=== PATIENT | female | born 1950 | race Caucasian/White ===

== ENCOUNTER 2020-09-28 10:23 | Inpatient (IN) | payer MEDICARE ==
[2020-09-28] VITALS (24 sets, daily range): BP systolic 80–163; BP diastolic 38–117
[~2020-09-28] VITALS: Ht 142.2 cm; Wt 88.6 kg
[2020-09-28] MEDS ORDERED: morphine 4 MG/ML inj SYRINge IV ONE (10:40)
[2020-09-28] MEDS ORDERED: normal saline 1000ML IV soln IVB ONE (10:40)
[2020-09-28] MEDS ORDERED: ondansetron/PF 4mg/2ml inj IV ONE (10:40)
[2020-09-28 11:40] LABS: BASOPHILS % (AUTO) 0 % (0-1); EOSINOPHILS % (AUTO) 0 % (0-6); HEMATOCRIT 42.5 % (35.0-45.0); HEMOGLOBIN 14.2 g/dl (12.0-16.0); LYMPHOCYTES # (AUTO) 0.2 X10'3 (1.1-4.8); LYMPHOCYTES % (AUTO) 1.8 % (21-51); MEAN CORPUSCULAR HEMOGLOBIN 29.7 PG (27.0-31.0); MEAN CORPUSCULAR HGB CONC 33.5 g/dL (33.0-36.5); MEAN CORPUSCULAR VOLUME 88.7 FL (78-98); MEAN PLATELET VOLUME 9.1 FL (7.4-10.4); MONOCYTES # (AUTO) 0.2 X10'3 (0-0.9); MONOCYTES % (AUTO) 1.8 % (2-12); NEUTROPHILS # (AUTO) 9.5 X10'3 (1.8-7.7); NEUTROPHILS % (AUTO) 96.4 % (42-75); PLATELET COUNT 174 X10'3 (140-440); RED BLOOD COUNT 4.79 X10'6 (4.20-5.60); RED CELL DISTRIBUTION WIDTH 14.7 % (11.5-14.5); WHITE BLOOD COUNT 9.9 X10'3 (4.5-11.0)
[2020-09-28 11:58] LABS: ALANINE AMINOTRANSFERASE 174 U/L (12-78); ALBUMIN 3.2 G/DL (3.4-5.0); ALBUMIN/GLOBULIN RATIO 0.8 (1.1-1.5); ALKALINE PHOSPHATASE 185 IU/L (46-116); ANION GAP 12 (8-16); ASPARTATE AMINO TRANSFERASE 126 U/L (10-37); BILIRUBIN,TOTAL 2.3 MG/DL (0.1-1.0); BLOOD UREA NITROGEN 22 MG/DL (7-18); BUN/CREATININE RATIO 21.8 (6.6-38.0); CALCIUM 9.2 MG/DL (8.5-10.1); CHLORIDE 97 MMOL/L (99-107); CREATININE 1.01 MG/DL (0.40-0.90); GLUCOSE 133 MG/DL (70-104); POTASSIUM 3.7 MMOL/L (3.5-5.1); SODIUM 130 MMOL/L (135-145); TOTAL CARBON DIOXIDE 21.5 MMOL/L (24-32); TOTAL PROTEIN 7.1 G/DL (6.4-8.2); eGFR 54 ML/MIN
[2020-09-28 12:16] LABS: CLARITY,URINE CLOUDY (Clear); COLOR,URINE AMBER (Yellow); GLUCOSE, URINE 100 mg/dl (Neg); KETONES,URINE TRACE mg/dl (Neg); LEUKOCYTE ESTERASE ,URINE MODERATE (Neg); NITRITES, URINE NEGATIVE (Neg); OCCULT BLOOD,URINE MODERATE (Neg); PROTEIN,URINE 30 mg/dl (Neg); UROBILINOGEN,URINE >=8.0 E.U/dL (0.2-1.0)
[2020-09-28 12:25] LABS: UA COLLECTION TYPE CLN CATCH MIDSTREAM
--- NOTE | 2020-09-28 12:25 | NUR ---
to ct via wc
--- NOTE | 2020-09-28 12:27 | NUR ---
urine rejected for culture
[2020-09-28 12:29] LABS: BACTERIA,URINE FEW /HPF (Neg); MUCUS STRANDS FEW /LPF (Neg); RBC,URINE 0-2 /HPF (0-2); SQUAMOUS EPITHELIAL CELL,UR MANY /LPF (FEW); WBC,URINE 20-30 /HPF (0-4)
[2020-09-28 12:30] LABS: RENAL CELLS, URINE FEW /HPF; TRANSITIONAL EPI CELLS,URINE FEW /HPF
[2020-09-28] MEDS ORDERED: piperacillin/tazo 3.375gm/50ml 50 ML IV ONE (13:05)
[2020-09-28] MEDS ORDERED: ondansetron/PF 4mg/2ml inj IV PRN ×2 (13:40→16:25)
[2020-09-28] MEDS ORDERED: morphine 2 MG/ML inj. syringe IV PRN ×2 (13:40→16:25)
[2020-09-28] MEDS ORDERED: HYDROmorphone inj. 0.5 MG/0.5 ML DISP.SYRIN IV PRN (13:40)
[2020-09-28] MEDS ORDERED: mag hydrox/Alum hydrox/simeth 30ml oral suspension PO PRN (13:40)
[2020-09-28] MEDS ORDERED: magnesium hydroxide 30ml (MOM) UD suspension PO PRN (13:40)
[2020-09-28] MEDS ORDERED: acetaminophen 325mg tablet PO PRN (13:40)
[2020-09-28] MEDS: normal saline 1000ml 1,000 ML IV SCH (14:16)
[2020-09-28] MEDS ORDERED: LISI20TA28 PO (14:34)
[2020-09-28] MEDS ORDERED: POTA10TA19 PO (14:34)
[2020-09-28] MEDS ORDERED: ASPI-1265 PO (14:34)
[2020-09-28] MEDS ORDERED: MULT-1085 PO (14:34)
[2020-09-28] MEDS ORDERED: FURO40TA4 PO (14:34)
[2020-09-28] MEDS ORDERED: POTA10TA10 PO (15:00)
[2020-09-28] MEDS ORDERED: LISI10TA27 PO (15:00)
[2020-09-28] MEDS ORDERED: FURO-150 PO (15:00)
[2020-09-28] MEDS ORDERED: LIDOcaine 1% 30ml preserv. free vial ONE (15:35)
[2020-09-28] MEDS ORDERED: BUPIVAcaine/PF 2.5 mg/ml (0.25%) 30ml vial ONE (15:35)
--- NOTE | 2020-09-28 16:03 | NUR ---
REPORT CALLED TO RECOVERY
[2020-09-28] MEDS ORDERED: proCHLORperazine 10 MG/2 ml inj IV PRN (16:25)
[2020-09-28] MEDS ORDERED: ringers solution, lacted 1,000 ML IV SCH (16:25)
[2020-09-28] MEDS ORDERED: meperidine/PF 25mg/ml syringe IV PRN ×3 (16:25)
[2020-09-28] MEDS ORDERED: propofol inj 20 ML IV ONE (16:51)
[2020-09-28] MEDS ORDERED: LIDOcaine 2% (20mg/ml) 5ml vial ONE (16:51)
[2020-09-28] MEDS ORDERED: fentaNYL/PF 50MCG/1 ML 2ML syringe ONE (16:51)
[2020-09-28] MEDS ORDERED: midazolam 1 mg/ML 2ml injection ONE (16:51)
[2020-09-28] MEDS ORDERED: rocuronium 10mg/ml inj IV ONE (16:52)
[2020-09-28] MEDS ORDERED: ondansetron/PF 4mg/2ml inj ONE (17:00)
[2020-09-28] MEDS ORDERED: ePHEDrine 50MG/ML INJ. ONE (17:03)
[2020-09-28] MEDS ORDERED: ketorolac trometh. 30mg/ml inj. ONE (17:37)
--- NOTE | 2020-09-28 17:50 | NUR ---
Received from OR via BED , accompanied by Anesthesiologist DR ADDISON and report given by Anesthesiolgist. PATIENT WAKING UP, DENIES PAIN, V/S WNL, NEUROVASCULAR CHECKS INTACT, 20G PIV RUE, SCD ON, BANDAIDS TO LAP SIGHTS OF ABDOMEN CDI.
[2020-09-28] MEDS ORDERED: metoprolol tartrate 1mg/ml inj IV SCH (18:00)
[2020-09-28] MEDS ORDERED: neostigmine methylsulfate 1 MG/ML 10ml vial ONE (18:04)
[2020-09-28] MEDS ORDERED: glycopyrrolate 0.2mg/ml inj ONE ×3 (18:04→18:08)
--- NOTE | 2020-09-28 18:05 | NUR ---
PATIENT SHOWING VERY LITTLE EFFORT TO BREATH AND DESATING TO 70%, AMBU BAG USED TO ASSIST BREATHING AND STABALIZE PATIENT SATURATION LEVEL BACK TO 94% DR ADDISON CALLED TO ASSESS PATIENT. HTN INCREASING WELL HR 140'S DR AZAEL AWARE.
[2020-09-28] MEDS ORDERED: sugammadex 200mg/2ml injection IV ONE (18:14)
[2020-09-28] MEDS ORDERED: propofol 1000mg/100ml bottle 100 ML IV SCH (18:15)
[2020-09-28] MEDS: morphine 4 MG/ML inj SYRINge IV PRN ×2 (18:18→18:23)
[2020-09-28] MEDS ORDERED: propofol 1000mg/100ml bottle 100 ML IV ONE (18:21)
[2020-09-28] MEDS ORDERED: HYDROcodone/acetaminophen 5mg/325mg tablet PO PRN (18:25)
[2020-09-28] MEDS ORDERED: HYDROcodone/acetaminophen 10/325mg tab PO PRN (18:25)
--- NOTE | 2020-09-28 18:28 | NUR ---
Problems reprioritized. Patient report given, questions answered & plan of care reviewed with KIAH GALICIA.
--- NOTE | 2020-09-28 18:33 | NUR ---
MEDS GIVEN PER DR ADDISON OVERRIDE FOR ROBINAL AND NEOSTYGMINE WHICH DR ADDISON ADMINISTERED WELL HIM REINTUBATING PATIENT, MORPHINE GIVEN AND DIPROVAN WHILE PATIENT BEING VENTILATED W/CPAP SETTING TV 350 AFTER MEDS GIVEN, HTN RESOLVED HR 113 NOW, DR ADDISON WANTS PATIENT TO BE VENTALATED AND WATCH FOR AN HOUR AND RE EVALUATE CONDITION AND EXTUBATE IF ABLE AFTER THIS. ABG AND CHEST XRY DONE.
--- NOTE | 2020-09-28 18:40 | NUR ---
PATIENT WAKING UP SLIGHTLY, V/S CONTINUE TO STABALIZE.
[2020-09-28 18:49] LABS: ABG BASE EXCESS -8.6 mmol/L (-2.0-2.0); ABG HCO3 17.3 mmol/L (22.0-26.0); ABG OXYGEN SATURATION 97.6 % (94-97); ABG PCO2 (T) 39.3 mmHg (32.0-45.0); ABG PO2 (T) 122.5 mmHg (75.0-100.0); FCOHb 0.3 % (0.0-3.9); FMetHb 0.3 % (0.0-1.5); PATIENT TEMPERATURE 38.2; TOTAL HEMOGLOBIN 13.8 G/dl (12.0-16.0)
--- NOTE | 2020-09-28 18:54 | NUR ---
SEE RT NOTES, PATIENT TV OVER 1000 NOW. ET 19.5CM AT GUM
[2020-09-28 19:03] LABS: ALBUMIN 2.6 G/DL (3.4-5.0); ANION GAP 12 (8-16); BLOOD UREA NITROGEN 20 MG/DL (7-18); CALCIUM 8.2 MG/DL (8.5-10.1); CHLORIDE 103 MMOL/L (99-107); GLUCOSE 131 MG/DL (70-104); POTASSIUM 3.7 MMOL/L (3.5-5.1); SODIUM 134 MMOL/L (135-145); TOTAL CARBON DIOXIDE 18.7 MMOL/L (24-32); eGFR 71 ML/MIN
[2020-09-28] MEDS ORDERED: sodium bicarbonate (8.4%) inj. 50 MEQ in dextrose 5%-water 1,000 ML IV SCH (19:10)
[2020-09-28] MEDS ORDERED: sodium bicarbonate (8.4%) 1 mEq/ml syringe IV ONE (19:35)
[2020-09-28 19:51] LABS: ABG HCO3 23.5 mmol/L (22.0-26.0); ABG PCO2 (T) 39.7 mmHg (32.0-45.0); ABG PO2 (T) 134.6 mmHg (75.0-100.0); ALLEN'S TEST POSITIVE; FCOHb 0.1 % (0.0-3.9); FMetHb 0.3 % (0.0-1.5); FO2Hb 97.6 % (94-97); PATIENT TEMPERATURE 37.9; TOTAL HEMOGLOBIN 13.3 G/dl (12.0-16.0)
--- NOTE | 2020-09-28 20:03 | NUR ---
PATIENT EXTUBATED WITHOUT COMPLICATIONS A&OX4, DENIES PAIN, V/S WNL, SATS 3L 96%
--- NOTE | 2020-09-28 20:15 | NUR ---
Patient arrived to the floor on a hospital bed, escorted by Kevyn GALICIA. She is in stable condition, NC on O2 @2L, LR running @ 100ml/hr. Patient has her cell phone on her, which is the only belongings she brought. Currently resting comfortably, will cont.. to monitor.
--- NOTE | 2020-09-28 20:20 | NUR ---
PATIENT A&OX4, DENIES PAIN, V/S WNL, NEUROVASCULAR CHECKS INTACT, 20G PIV RUE,20G LUE, SCD ON, BANDAIDS TO LAP SIGHTS OF ABDOMEN CDI. F/C DRAINING CLEAR YELLOW URINE. PATIENT PLACED ON TELE W/ PULSEOX AND TAKEN TO 3026B WITH ALL BELONGINGS AND HOOKED UP TO MONITORS IN ROOM AND REPORT GIVEN TO FINANCIAL REPORTING ANALYST WHO HAS TAKEN OVER PATIENT CARE.
[2020-09-29] VITALS: BP 98/58
[2020-09-29] MEDS: normal saline 1000ml 1,000 ML IV SCH ×2 (00:39→09:40)
[2020-09-29 02:00] VITALS: BP 106/75
[2020-09-29 04:00] VITALS: BP 108/72
[2020-09-29 06:23] LABS: BASOPHILS % (AUTO) 0.1 % (0-1); EOSINOPHILS % (AUTO) 0 % (0-6); HEMATOCRIT 36.4 % (35.0-45.0); HEMOGLOBIN 12.1 g/dl (12.0-16.0); LYMPHOCYTES # (AUTO) 0.3 X10'3 (1.1-4.8); LYMPHOCYTES % (AUTO) 3.5 % (21-51); MEAN CORPUSCULAR HEMOGLOBIN 29.5 PG (27.0-31.0); MEAN CORPUSCULAR HGB CONC 33.1 g/dL (33.0-36.5); MEAN CORPUSCULAR VOLUME 89.3 FL (78-98); MEAN PLATELET VOLUME 9.1 FL (7.4-10.4); MONOCYTES # (AUTO) 0.1 X10'3 (0-0.9); MONOCYTES % (AUTO) 1.7 % (2-12); NEUTROPHILS # (AUTO) 7.7 X10'3 (1.8-7.7); NEUTROPHILS % (AUTO) 94.7 % (42-75); PLATELET COUNT 153 X10'3 (140-440); RED BLOOD COUNT 4.08 X10'6 (4.20-5.60); RED CELL DISTRIBUTION WIDTH 14.6 % (11.5-14.5); WHITE BLOOD COUNT 8.2 X10'3 (4.5-11.0)
--- NOTE | 2020-09-29 06:26 | NUR ---
Problems reprioritized. Patient report given, questions answered & plan of care reviewed with Bijal GALICIA.
[2020-09-29 06:33] LABS: ALBUMIN 2.4 G/DL (3.4-5.0); ANION GAP 8 (8-16); BLOOD UREA NITROGEN 21 MG/DL (7-18); BUN/CREATININE RATIO 27.3 (6.6-38.0); CALCIUM 8.5 MG/DL (8.5-10.1); CHLORIDE 102 MMOL/L (99-107); CREATININE 0.77 MG/DL (0.40-0.90); GLUCOSE 96 MG/DL (70-104); POTASSIUM 3.8 MMOL/L (3.5-5.1); SODIUM 134 MMOL/L (135-145); TOTAL CARBON DIOXIDE 24.3 MMOL/L (24-32); TRIGLYCERIDES 89 MG/DL (20-135); eGFR 74 ML/MIN
[2020-09-29 06:53] VITALS: BP 104/54
[2020-09-29 07:48] LABS: ALBUMIN/GLOBULIN RATIO 0.8 (1.1-1.5); BILIRUBIN,DIRECT 1.7 MG/DL (0-0.3); BILIRUBIN,TOTAL 1.7 MG/DL (0.1-1.0); TOTAL PROTEIN 5.6 G/DL (6.4-8.2)
[2020-09-29 07:49] LABS: ALANINE AMINOTRANSFERASE 128 U/L (12-78); ALKALINE PHOSPHATASE 159 IU/L (46-116); ASPARTATE AMINO TRANSFERASE 82 U/L (10-37)
[2020-09-29] MEDS ORDERED: aspirin 81mg tab.chew PO SCH (08:00)
[2020-09-29] MEDS ORDERED: furosemide 20MG tablet PO SCH (08:00)
[2020-09-29] MEDS ORDERED: lisinopril 10 MG tablet PO SCH (08:00)
[2020-09-29] MEDS ORDERED: multivitamins, therapeutics tablet PO SCH (08:00)
[2020-09-29] MEDS: piperacillin/tazo 4.5gm/100ml 100 ML IV SCH (08:00)
[2020-09-29] MEDS ORDERED: enoxaparin 40mg/0.4ml syringe SUBCUT SCH (08:00)
[2020-09-29] MEDS ORDERED: potassium chloride 10mEq ER tablet PO SCH (08:00)
[2020-09-29] MEDS: heparin, porcine 5000 units/ml vial SQ SCH (08:02)
--- NOTE | 2020-09-29 11:02 | NUR ---
FOLETY CATH TAKEN OUT AT THIS TIME, NO SIGNS OF BLEEDING OR PAIN. PATIENT ORIENTED TO CALL WHEN SHE NEEDS TO GO TO THE BATHROOM NO OTHER NEEDS AT THIS TIME.
[2020-09-29] MEDS ORDERED: HYDR-3964 PO (11:14)
[2020-09-29 11:47] VITALS: BP 100/45
--- NOTE | 2020-09-29 15:44 | NUR ---
PATIENT AT THIS TIME DC, PATIENT IV TAKEN OUT AND DC INSTRUCTIONS GIVEN, NORCO SCRIPT GIVEN HAS WELL, PATIENT ORIENTED TO MONITOR FOR FEVER OR BLEEDING, PATIENT WILL CALL DR ON THURSDAY FOR POST-OP CARE.PATIENT AWARE AND INDICATES FULL UNDERSTANDING BEFORE BEING DC, NO OTHER NEEDS AT THE MOMENT. PATIENT WHEELED IN STABLE CONDITION.
[2020-09-29] MEDS ORDERED: lactobacillus rhamnosus 10,000 MMU CELLS/CAPSULE PO SCH (20:00)
--- NOTE | 2020-10-02 12:21 | NUR ---
CASE MANAGEMENT DISCHARGE FOLLOW UP: Spoke with pt via telephone. Reports that she feels that she is "not doing as well as I should be", states still having some loss of appetite, states that she has no pain but just feels uncomfortable, denies constipation, states passing gas. She states that she did talk to Dr Olvera after hours the other day for feeling of "fullness" and he advised her to take a double dose of MOM and she then spent half the day in the bathroom.; denies CP/palpitations, SOB/dyspnea, fever and other s/sx of infection. Verbalizes understanding of s/sx requiring further evaluation/emergent assistance, will notify MD if she does not improve. Pt states removed bandages yesterday and showered, afterwards she replace a few bandages to protect surgical sites as she states she has a large abdomen. Pt states activity level is pretty low, advised pt to be up at least every 1-2 hours to prevent DVT as well as deep breathe/cough to prevent PNA, pt verbalizes understanding and compliance. Verbalizes understanding of new and current medications. Verbalizes compliance with MD discharge instructions. Verbalizes understanding of the importance in making/keeping follow-up appointments, states will see Dr Olvera on 10/08 for staple removal. States no further questions/concerns at this time.
== END 2020-09-29 15:40 | disposition home or self-care (01) | DRG 342 ==
LOC: ER 10:24 → ED HOLD 13:39 → OBSVTOIN 13:39 → SUR 3N 15:24 → PCU 3S 20:35
PROVIDERS: ADMIT Family Medicine; ATTEND Family Medicine
PROC: 0DTJ4ZZ Resection of Appendix, Percutaneous Endoscopic Approach (ICD-10-PCS; principal; 2020-09-28 16:47)
DX: K35.30 Acute appendicitis with localized peritonitis, without perforation or gangrene (principal); E87.1 Hypo-osmolality and hyponatremia; Z68.41 Body mass index [BMI] 40.0-44.9, adult; E86.0 Dehydration; I10 Essential (primary) hypertension; B19.20 Unspecified viral hepatitis C without hepatic coma; R74.01 Elevation of levels of liver transaminase levels; E66.9 Obesity, unspecified; R74.8 Abnormal levels of other serum enzymes; Z20.822 Contact with and (suspected) exposure to COVID-19; Z90.49 Acquired absence of other specified parts of digestive tract; Z88.5 Allergy status to narcotic agent
CPT/HCPCS: 36415; 36600; 71045; 74018; 74176; 76700; 76705; 80048; 80053; 80076; 81001; 82803; 82948; 84478; 85018; 85025; 87081; 87426; 88304; 93005; 96361; 96374; 99285; A4215; A4618; C9399; G0378; J1644; J1885; J2001; J2250; J2270; J2405; J2543; J2704; J2710; J3010; J3490; J7030; J7120